=== PATIENT | male | born 1970 | race Caucasian/White ===

== ENCOUNTER 2017-02-27 09:32 | Emergency (ER) | payer OTHER ==
[~2017-02-27] VITALS: Ht 177.8 cm; Wt 98.6 kg
[~2017-02-27 09:32] MED LIST: OXYC-643 PO
[2017-02-27] MEDS ORDERED: ONDANSETRON INJ 2 MG/ML 2 ML VIAL IV STA (09:42)
[2017-02-27] MEDS ORDERED: SODIUM CHLORIDE 0.9% 1000ML 1,000 ML IV STA (09:42)
[2017-02-27 09:46] VITALS: Ht 177.8 cm; Wt 98.6 kg
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
[2017-02-27 09:59] LABS: BASO % 0.4 %; BASO ABS # 0.03 K/uL (0-0.2); COMPLETE YES; EOS % 0.6 %; HEMATOCRIT 41.1 % (42-52); IG% 0.5 %; LYMPH % 19.5 %; LYMPH ABS # 1.61 K/uL (1.2-3.4); MEAN CELL VOLUME 89.3 fL (80-100); MEAN CORPUSCULAR HEMOGLOBIN 31.7 pg (25-34); MEAN CORPUSCULAR HGB CONC 35.5 g/dl (32-36); MEAN PLATELET VOLUME 10.8 fL (7.4-10.4); MONO % 10.3 %; NEUT % 68.7 %; PLATELET COUNT 245 K/uL (130-400); WHITE BLOOD COUNT 8.26 K/uL (4.8-10.8)
[2017-02-27] MEDS: MoRPHine SULFATE 4 MG/ML 1 ML CARP\\VIAL IV PRN ×2 (10:00→12:24)
[2017-02-27 10:15] LABS: BUN/CREATININE RATIO 13.5 (10-20); CREATININE 1.3 mg/dl (0.60-1.40)
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
[2017-02-27] MEDS ORDERED: OXYC1TAB3 PO (12:35)
[2017-02-27 13:17] VITALS: BP 120/94; PULSE 69; TEMP 36.6; O2SAT 94
== END 2017-02-27 13:18 | disposition home or self-care (01) ==
LOC: EDBD 09:32 → C.EDB 09:34
DX: S92.001A Unspecified fracture of right calcaneus, initial encounter for closed fracture (principal); S82.301A Unspecified fracture of lower end of right tibia, initial encounter for closed fracture; S39.92XA Unspecified injury of lower back, initial encounter; V89.2XXA Person injured in unspecified motor-vehicle accident, traffic, initial encounter

== ENCOUNTER → 2017-03-07 | Outpatient (CLI) | payer OTHER ==
[~2017-03-07] MED LIST changes: -OXYC-643 PO; +OXYC1TAB3 PO
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
== END | disposition home or self-care (01) ==
LOC: C.CTS 10:55
PROVIDERS: ATTEND Physician Assistant
DX: S92.011A Displaced fracture of body of right calcaneus, initial encounter for closed fracture (principal); X58.XXXA Exposure to other specified factors, initial encounter

== ENCOUNTER → 2017-03-09 | Outpatient (CLI) | payer OTHER ==
--- NOTE | 2017-03-09 13:41 | DIAGNOSTIC IMAGING REPORT ---
RIGHT LOWER EXTREMITY VENOUS DOPPLER CLINICAL HISTORY: Right calf pain. COMPARISON STUDY: No previous studies for comparison. TECHNIQUE: Sonography of the deep venous system of the right lower extremity was performed. Compression and augmentation were evaluated. FINDINGS: The common femoral, superficial femoral and popliteal veins were compressible. Augmentation was normal. Flow was shown within the deep calf vessels of the calf vessels were suboptimally assessed on this exam due to suboptimal penetration. IMPRESSION: No evidence of deep venous thrombus within the right lower extremity. Suboptimal evaluation of the right calf vessels. Electronically signed by: Brian Zacarias M.D. 03/09/2017 1:40 PM Dictated Date/Time: 03/09/2017 1:39 PM
== END | disposition home or self-care (01) ==
LOC: C.ULTRBC 13:11
PROVIDERS: ATTEND Orthopaedic Surgery
DX: M79.661 Pain in right lower leg (principal)

== ENCOUNTER 2018-04-26 17:08 | Emergency (ER) | payer OTHER ==
[~2018-04-26] VITALS: Ht 177.8 cm; Wt 101.6 kg
[2018-04-26 17:10] VITALS: TEMP 36.9; Ht 177.8 cm; Wt 101.6 kg
[2018-04-26] MEDS ORDERED: SODIUM CHLORIDE 0.9% 1000ML 1,000 ML IV STA (17:39)
[2018-04-26 17:44] VITALS: O2SAT 96
[2018-04-26 17:50] LABS: BASO % 0.3 %; BASO ABS # 0.03 K/uL (0-0.2); EOS ABS # 0.11 K/uL (0-0.5); HEMATOCRIT 39.7 % (42-52); HEMOGLOBIN 14.1 g/dL (14.0-18.0); IG# 0.02 K/uL (0.00-0.02); LYMPH % 23.2 %; LYMPH ABS # 2.57 K/uL (1.2-3.4); MEAN CELL VOLUME 89.4 fL (80-100); MEAN CORPUSCULAR HEMOGLOBIN 31.8 pg (25-34); MEAN CORPUSCULAR HGB CONC 35.5 g/dl (32-36); MEAN PLATELET VOLUME 11.1 fL (7.4-10.4); MONO % 9.2 %; MONO ABS # 1.02 K/uL (0.11-0.59); NEUT % 66.1 %; NEUT ABS # 7.31 K/uL (1.4-6.5); PLATELET COUNT 243 K/uL (130-400); RED CELL DISTRIBUTION WIDTH CV 12.3 % (11.5-14.5); RED CELL DISTRIBUTION WIDTH SD 39.9 fL (36.4-46.3); WHITE BLOOD COUNT 11.06 K/uL (4.8-10.8)
[2018-04-26 18:02] LABS: INR 1.1 (0.9-1.1); PTT PATIENT 25.3 SECONDS (21.0-31.0)
--- NOTE | 2018-04-26 18:05 | DIAGNOSTIC IMAGING REPORT ---
CHEST ONE VIEW PORTABLE CLINICAL HISTORY: Chest pain. COMPARISON STUDY: Chest radiograph February 27, 2017. FINDINGS: Incisional note is made of an lower anterior cervical spine fusion and surgical clips within the lower neck. Mild left basilar opacity favors atelectasis. There is no consolidation or evidence for pulmonary edema. Cardiomediastinal silhouette is stable. IMPRESSION: No acute cardiopulmonary findings. Electronically signed by: Brian Zacarias M.D. 04/26/2018 6:04 PM Dictated Date/Time: 04/26/2018 6:03 PM
[2018-04-26 18:38] LABS: ALBUMIN 3.7 gm/dl (3.4-5.0); ALKALINE PHOSPHATASE 50 U/L (45-117); ALT/SGPT 31 U/L (12-78); AST/SGOT 16 U/L (15-37); BLOOD UREA NITROGEN 15 mg/dl (7-18); CALCIUM 8.5 mg/dl (8.5-10.1); CARBON DIOXIDE 27 mmol/L (21-32); CREATININE 1.15 mg/dl (0.60-1.40); GLUCOSE 103 mg/dl (70-99); LIPASE 124 U/L (73-393); POTASSIUM 3.9 mmol/L (3.5-5.1); SODIUM 139 mmol/L (136-145); TOTAL PROTEIN 7.1 gm/dl (6.4-8.2)
[2018-04-26] MEDS ORDERED: KETOROLAC TROMETHAMINE 30 MG/ML VIAL IV STA (18:41)
--- NOTE | 2018-04-26 18:48 | DIAGNOSTIC IMAGING REPORT ---
ULTRASOUND BILATERAL LOWER EXTREMITY VENOUS CLINICAL HISTORY: Atypical chest pain. Clinical concern for deep venous thrombosis. COMPARISON STUDY: Right lower extremity venous ultrasound dated 03/09/2017. TECHNIQUE: Real-time, grayscale, and color Doppler sonography of the deep veins of the right and left lower extremity was performed from the inguinal crease to the calf. Compression and augmentation were utilized. FINDINGS: There is no sonographic evidence of deep venous thrombosis identified in the right or left lower extremity. The common femoral, superficial femoral, and popliteal veins are patent and normally compressible bilaterally. The greater saphenous vein and the profunda femoris vein at the junction with the common femoral vein are clear in both legs. The visualized calf veins are patent bilaterally. IMPRESSION: There is no sonographic evidence of deep venous thrombosis identified in the right or left lower extremity. Electronically signed by: Christiano Hickman M.D. 04/26/2018 6:46 PM Dictated Date/Time: 04/26/2018 6:46 PM
[2018-04-26 18:52] VITALS: BP 129/89; PULSE 54; O2SAT 98
--- NOTE | 2018-04-26 19:43 | EMERGENCY ROOM VISIT NOTE ---
History Report prepared by Fabián: Olivia Doyle Under the Supervision of: Dr. Tim Reeves M.D. First contact with patient: 17:29 Chief Complaint: CHEST PAIN Stated Complaint: NUMBNESS IN L ARM,CHEST TWITCHING History of Present Illness The patient is a 47 year old male who presents to the Emergency Room with complaints of chest pain beginning yesterday. He states that yesterday, he felt some chest tightness but thought it would pass on its own however, it has been constant. He notes it feels like someone is squeezing the muscles in his left arm and his bilateral legs are cramping. Taking a deep breath worsens his chest pain. The patient is accompanied by his family who states that does not drink any water, only soda. He reports he was sick earlier today and vomited in the car this morning. Source of History: patient Onset: yesterday Position: chest Quality: other (tightness) Timing: constant Modifying Factors (Worsening): other (taking a deep breath) Associated Symptoms: + vomiting (this morning) Note: Positive left arm tightness and bilateral leg cramping Review of Systems See HPI for pertinent positives and negatives. A total of ten systems were reviewed and were otherwise negative. Past Medical & Surgical Surgical Problems: (1) H/O neck surgery (2) Hx of tonsillectomy Family History Patient reports no known family medical history. Social History Smoking Status: Never Smoker Alcohol Use: none Marital Status: Housing Status: lives with significant other Occupation Status: employed Current/Historical Medications Miscellaneous Medications None (Patient States No Home Meds) Allergies Coded Allergies: No Known Allergies (Unverified , 05/09/08) Physical Exam Vital Signs Date Time Temp Pulse Resp B/P (MAP) Pulse Ox O2 Delivery O2 Flow Rate FiO2 04/26/18 18:52 54 18 129/89 98 Room Air 04/26/18 17:44 96 Room Air 04/26/18 17:44 96 Room Air 04/26/18 17:44 96 Room Air 04/26/18 17:34 61 04/26/18 17:10 36.9 60 18 121/83 97 Physical Exam GENERAL: Awake, alert, well-appearing, in no distress HENT: Normocephalic, atraumatic. Oropharynx unremarkable. EYES: Normal conjunctiva. Sclera non-icteric. NECK: Supple. No nuchal rigidity. RESPIRATORY: Clear to auscultation. No wheezes. Normal respiratory effort. CARDIAC: Normal rate. Normal rhythm. Extremities warm and well perfused. GI: Soft, non-distended. No tenderness to palpation. No rebound or guarding. No masses. RECTAL: Deferred. MUSCULOSKELETAL: Atraumatic. Chest examination reveals no tenderness. UPPER EXTREMITIES: no focal tenderness or swelling. LOWER EXTREMITIES: Calves are equal size bilaterally and non-tender. No edema. Mild diffuse muscle tenderness. NEURO: Normal sensorium. No sensory or motor deficits noted. No facial droop. SKIN: Warm and dry. No rash or jaundice noted. Medical Decision & Procedures ER Provider Diagnostic Interpretation: Radiology results as stated below per my review and radiologist interpretation: CHEST ONE VIEW PORTABLE CLINICAL HISTORY: Chest pain. COMPARISON STUDY: Chest radiograph February 27, 2017. FINDINGS: Incisional note is made of an lower anterior cervical spine fusion and surgical clips within the lower neck. Mild left basilar opacity favors atelectasis. There is no consolidation or evidence for pulmonary edema. Cardiomediastinal silhouette is stable. IMPRESSION: No acute cardiopulmonary findings. Electronically signed by: Brian Zacarias M.D. 04/26/2018 6:04 PM ULTRASOUND BILATERAL LOWER EXTREMITY VENOUS CLINICAL HISTORY: Atypical chest pain. Clinical concern for deep venous thrombosis. COMPARISON STUDY: Right lower extremity venous ultrasound dated 03/09/2017. TECHNIQUE: Real-time, grayscale, and color Doppler sonography of the deep veins of the right and left lower extremity was performed from the inguinal crease to the calf. Compression and augmentation were utilized. FINDINGS: There is no sonographic evidence of deep venous thrombosis identified in the right or left lower extremity. The common femoral, superficial femoral, and popliteal veins are patent and normally compressible bilaterally. The greater saphenous vein and the profunda femoris vein at the junction with the common femoral vein are clear in both legs. The visualized calf veins are patent bilaterally. IMPRESSION: There is no sonographic evidence of deep venous thrombosis identified in the right or left lower extremity. Electronically signed by: Christiano Hickman M.D. 04/26/2018 6:46 PM Laboratory Results 04/26/18 17:28 Red Blood Count 4.44, Mean Corpuscular Volume 89.4, Mean Corpuscular Hemoglobin 31.8, Mean Corpuscular Hemoglobin Concent 35.5, Mean Platelet Volume 11.1, Neutrophils (%) (Auto) 66.1, Lymphocytes (%) (Auto) 23.2, Monocytes (%) (Auto) 9.2, Eosinophils (%) (Auto) 1.0, Basophils (%) (Auto) 0.3, Neutrophils # (Auto) 7.31, Lymphocytes # (Auto) 2.57, Monocytes # (Auto) 1.02, Eosinophils # (Auto) 0.11, Basophils # (Auto) 0.03 04/26/18 17:28 Test 04/26/18 17:28 White Blood Count 11.06 K/uL (4.8-10.8) Red Blood Count 4.44 M/uL (4.7-6.1) Hemoglobin 14.1 g/dL (14.0-18.0) Hematocrit 39.7 % (42-52) Mean Corpuscular Volume 89.4 fL (80-100) Mean Corpuscular Hemoglobin 31.8 pg (25-34) Mean Corpuscular Hemoglobin Concent 35.5 g/dl (32-36) Platelet Count 243 K/uL (130-400) Mean Platelet Volume 11.1 fL (7.4-10.4) Neutrophils (%) (Auto) 66.1 % Lymphocytes (%) (Auto) 23.2 % Monocytes (%) (Auto) 9.2 % Eosinophils (%) (Auto) 1.0 % Basophils (%) (Auto) 0.3 % Neutrophils # (Auto) 7.31 K/uL (1.4-6.5) Lymphocytes # (Auto) 2.57 K/uL (1.2-3.4) Monocytes # (Auto) 1.02 K/uL (0.11-0.59) Eosinophils # (Auto) 0.11 K/uL (0-0.5) Basophils # (Auto) 0.03 K/uL (0-0.2) RDW Standard Deviation 39.9 fL (36.4-46.3) RDW Coefficient of Variation 12.3 % (11.5-14.5) Immature Granulocyte % (Auto) 0.2 % Immature Granulocyte # (Auto) 0.02 K/uL (0.00-0.02) Prothrombin Time 11.2 SECONDS (9.0-12.0) Prothromb Time International Ratio 1.1 (0.9-1.1) Activated Partial Thromboplast Time 25.3 SECONDS (21.0-31.0) Partial Thromboplastin Ratio 1.0 D-Dimer < 190 ug/L FEU (0-500) Anion Gap 6.0 mmol/L (3-11) Est Creatinine Clear Calc Drug Dose 94.8 ml/min Estimated GFR () 87.3 Estimated GFR (Non- 75.4 BUN/Creatinine Ratio 12.6 (10-20) Calcium Level 8.5 mg/dl (8.5-10.1) Magnesium Level 2.1 mg/dl (1.8-2.4) Total Bilirubin 0.4 mg/dl (0.2-1) Direct Bilirubin < 0.1 mg/dl (0-0.2) Aspartate Amino Transf (AST/SGOT) 16 U/L (15-37) Alanine Aminotransferase (ALT/SGPT) 31 U/L (12-78) Alkaline Phosphatase 50 U/L (45-117) Troponin I < 0.015 ng/ml (0-0.045) Total Protein 7.1 gm/dl (6.4-8.2) Albumin 3.7 gm/dl (3.4-5.0) Lipase 124 U/L (73-393) Thyroid Stimulating Hormone (TSH) 2.170 uIu/ml (0.300-4.500) Medications Administered Medications (Trade) Dose Ordered Sig/Nicolás Route Start Time Stop Time Status Last Admin Dose Admin Sodium Chloride 1,000 ml @ 999 mls/hr Q1H1M STAT IV 04/26/18 17:39 04/26/18 18:39 DC 04/26/18 17:39 999 MLS/HR Ketorolac Tromethamine (Toradol Inj) 15 mg NOW STAT IV 04/26/18 18:41 04/26/18 18:42 DC 04/26/18 18:50 15 MG ECG Per My Interpretation Indication: chest pain Rate (beats per minute): 56 Rhythm: sinus bradycardia Findings: no ectopy, other (normal axis, no acute ST segment elevation) Comparison ECG Date: 03/06/13 Change: no significant change ED Course 1731: The patient was evaluated in room A12. A complete history and physical exam was performed. 9: Ordered Sodium Chloride 1000 ml @ 999 mls/hr IV 1841: Ordered Toradol Inj 15 mg IV 1850: I reevaluated the patient. Discussed results and discharge instructions: He verbalized understanding and agreement. The patient is ready for discharge. Medical Decision Triage Nursing notes reviewed. Differential diagnosis: Etiologies such as cardiac ischemia, aortic dissection, pulmonary embolism, pneumonia, pneumothorax, musculoskeletal, infections, pericarditis, myocarditis , esophageal rupture, gastrointestinal, as well as others were entertained. Patient complains of some tightness and chest into his left arm with associated muscle twitching. Also some cramping of his prickly left lower leg. Is a trucker. No significant shortness of breath. No trauma. No tachycardia. Denies significant medical history. States he does not drink much water and thinks he may be somewhat dehydrated. EKG without acute findings. D-dimer sent but lower suspicion for PE. Doubt dissection. Doubt pneumonia but chest x -ray was completed. Ultrasound lower extremity was completed without acute finding. Electrolytes were also sent and given some fluid rehydration. D- dimer was negative. Chest x-ray without acute findings. No evidence of significant electrolyte abnormality. Negative troponin. Lower suspicion this is ACS. Heart score is low risk. Benign abdomen and doubt hepatitis or pancreatitis. Likely after discussion with him he endorses heavy caffeine use and fatigue seems to be more related to his hectic work schedule. Advised him to employ a healthier lifestyle as able and recommended if he continues symptoms to follow-up with his regular doctor within the week. At this time feel he is stable for discharge. Medication Reconcilliation Current Medication List: was personally reviewed by me Blood Pressure Screening Patient's blood pressure: Normal blood pressure Blood pressure disposition: Did not require urgent referral Impression Primary Impression: Chest pain Additional Impressions: Muscle cramps Fatigue Scribe Attestation The scribe's documentation has been prepared under my direction and personally reviewed by me in its entirety. I confirm that the note above accurately reflects all work, treatment, procedures, and medical decision making performed by me. Departure Information Dispostion Home / Self-Care Referrals No Doctor, Assigned (PCP) Forms Call Back Authorization, HOME CARE DOCUMENTATION FORM, IMPORTANT VISIT INFORMATION Patient Instructions My [facility] [place] Cloudy Days Additional Instructions Please continue to maintain good hydration with water. Moderate your caffeine use as able. If you can experience new concerning symptoms or significant worsening of your pain or weakness please feel free to return here at any time. Would recommend if you have persistent symptoms follow-up with your regular doctor within a week. Please utilize your days off to try to get some rest and recuperate from your work schedule. May use over the counter Tylenol or Motrin if needed. Problem Qualifiers Primary Impression: Chest pain Chest pain type: unspecified Qualified Codes: R07.9 - Chest pain, unspecified Additional Impressions: Fatigue Fatigue type: unspecified Qualified Codes: R53.83 - Other fatigue
== END 2018-04-26 19:16 | disposition home or self-care (01) ==
LOC: C.EDB 17:09 → C.EDA 19:16
DX: R07.9 Chest pain, unspecified (principal); R25.2 Cramp and spasm; R53.83 Other fatigue